=== PATIENT | male | born 1965 | race African-American/Black ===

== ENCOUNTER 2019-02-08 09:03 | Inpatient (IN) | payer OTHER ==
[2019-02-08 11:09] VITALS: BMI 24.3
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
[2019-02-08] MEDS ORDERED: BISMUTH SUBSALICYLATE 262 MG/15 ML BTL PO PRN (11:43)
[2019-02-08] MEDS ORDERED: IBUPROFEN 400 MG TABLET (FP) PO PRN (11:43)
[2019-02-08] MEDS ORDERED: METHOCARBAMOL 500 MG TABLET PO PRN (11:43)
[2019-02-08] MEDS ORDERED: MAGNESIUM CITRATE 300 ML BOTTLE PO PRN (11:43)
[2019-02-08] MEDS ORDERED: MAGNESIUM HYDROX 2400MG/30ML ORAL SUSPENSION 30 ML CUP PO PRN (11:43)
[2019-02-08] MEDS ORDERED: ACETAMINOPHEN 325 MG TABLET (FP) PO PRN ×2 (11:43)
[2019-02-08] MEDS ORDERED: MAG HYDROX/AL HYDROX/SIMETH 30 ML UNIT-DOSE CUP PO PRN (11:43)
[2019-02-08] MEDS ORDERED: chlordiazePOXIDE HCL 25 MG CAPSULE PO PRN (11:43)
[2019-02-08] MEDS ORDERED: hydrOXYzine HCL 25 MG TABLET (FP) PO PRN (11:43)
[2019-02-08] MEDS ORDERED: NICOTINE POLACRILEX 2 MG GUM BUC PRN (11:43)
[2019-02-08] MEDS ORDERED: MENTHOL/PHENOL 1 EACH UD MM PRN (11:43)
[2019-02-08] MEDS: NICOTINE 21 MG/24 HOURS TOPICAL PATCH TD SCH (13:58)
[2019-02-08] MEDS: BACITRACIN 15 GM TUBE TOPICAL OINTMENT TP SCH ×2 (13:59→22:32)
[2019-02-08 14:05] LABS: HEMATOCRIT 40.4 % (35.4-49); HEMOGLOBIN 13.2 GM/dL (11.7-16.9); MCH 28.3 pg (25.7-33.7); MCHC 32.8 g/dl (32.0-35.9); MEAN CELL VOLUME 86.3 fl (80-96); MEAN PLT VOLUME 9.1 fl (7.5-11.1); PLATELET COUNT 231 K/MM3 (134-434); RBC 4.69 M/mm3 (4.00-5.60); RDW 14.3 % (11.9-15.9); WHITE BLOOD COUNT 6.3 K/mm3 (4.0-10.0)
[2019-02-08 14:19] LABS: ALBUMIN 3.5 g/dl (3.4-5.0); BILIRUBIN,TOTAL 0.6 mg/dL (0.2-1); BLOOD UREA NITROGEN 11.6 mg/dL (7-18); CALCIUM 8.8 mg/dL (8.5-10.1); CREATININE 1.1 mg/dL (0.55-1.3); POTASSIUM 4.1 mmol/L (3.5-5.1); TOT PROT 6.9 g/dl (6.4-8.2)
[2019-02-08] MEDS: chlordiazePOXIDE HCL 25 MG CAPSULE PO SCH ×2 (17:30→22:31)
[2019-02-08] MEDS: MELATONIN 5 MG TABLETS PO PRN (22:32)
[2019-02-08] MEDS: THIAMINE HCL 100 MG TABLET (FP) PO SCH (22:32)
[2019-02-09] MEDS: chlordiazePOXIDE HCL 25 MG CAPSULE PO SCH ×4 (06:17→22:47)
[2019-02-09] MEDS: PRENATAL VITAMINS W/ FOLIC ACID TABLET (FP) PO SCH (10:39)
[2019-02-09] MEDS: NICOTINE 21 MG/24 HOURS TOPICAL PATCH TD SCH (10:39)
[2019-02-09] MEDS: BACITRACIN 15 GM TUBE TOPICAL OINTMENT TP SCH ×2 (10:39→22:48)
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
[2019-02-09 22:00] VITALS: TEMP 97
[2019-02-09] MEDS: THIAMINE HCL 100 MG TABLET (FP) PO SCH (22:47)
[2019-02-09] MEDS: MELATONIN 5 MG TABLETS PO PRN (22:48)
[2019-02-09 23:35] LABS: PH,URINE 7.5 (5.0-8.0); URINE APPEARANCE CLEAR; URINE BILIRUBIN NEGATIVE (NEGATIVE); URINE COLOR YELLOW; URINE GLUCOSE (UA) NEGATIVE (NEGATIVE); URINE KETONE NEGATIVE (NEGATIVE); URINE LEUK ESTERASE NEGATIVE (NEGATIVE); URINE NITRITE NEGATIVE (NEGATIVE); URINE PROTEIN NEGATIVE (NEGATIVE); URINE UROBILINOGEN 0.2 mg/dL (0.2-1.0)
[2019-02-10] MEDS: chlordiazePOXIDE HCL 25 MG CAPSULE PO SCH ×2 (06:13→10:22)
[2019-02-10 06:37] VITALS: BP 126/89; PULSE 66
[2019-02-10] MEDS: BACITRACIN 15 GM TUBE TOPICAL OINTMENT TP SCH (10:21)
[2019-02-10] MEDS: PRENATAL VITAMINS W/ FOLIC ACID TABLET (FP) PO SCH (10:21)
[2019-02-10] MEDS: NICOTINE 21 MG/24 HOURS TOPICAL PATCH TD SCH (10:21)
--- NOTE | 2019-02-10 10:58 | DS ---
[facility] Detox Discharge Summary Admission Date: 02/08/19 Discharge Date: 02/10/19 - History Present History: Alcohol Dependence Additional Comments: 53 years old male admitted on 02/08/19 for acute alcohol withdrawal sx management insists to leave the detox unit "It is time" counselor and commercial real estate underwriter discuss risks and dangerousness of alcohol withdrawal patient prefers to return to [place] to home that he was sober for 7 years and he prefers to go home today - Physical Exam Results Vital Signs: Vital Signs Temperature 97 F L 02/10/19 06:37 Pulse Rate 66 02/10/19 06:37 Respiratory Rate 18 02/10/19 06:37 Blood Pressure 126/89 02/10/19 06:37 O2 Sat by Pulse Oximetry (%) Pertinent Admission Physical Exam Findings: alcohol withdrawal sx Laboratory Last Values WBC 6.3 K/mm3 (4.0-10.0) 02/08/19 12:05 RBC 4.69 M/mm3 (4.00-5.60) 02/08/19 12:05 Hgb 13.2 GM/dL (11.7-16.9) 02/08/19 12:05 Hct 40.4 % (35.4-49) 02/08/19 12:05 MCV 86.3 fl (80-96) 02/08/19 12:05 MCH 28.3 pg (25.7-33.7) 02/08/19 12:05 MCHC 32.8 g/dl (32.0-35.9) 02/08/19 12:05 RDW 14.3 % (11.9-15.9) 02/08/19 12:05 Plt Count 231 K/MM3 (134-434) 02/08/19 12:05 MPV 9.1 fl (7.5-11.1) 02/08/19 12:05 Sodium 141 mmol/L (136-145) 02/08/19 12:05 Potassium 4.1 mmol/L (3.5-5.1) 02/08/19 12:05 Chloride 103 mmol/L (98-107) 02/08/19 12:05 Carbon Dioxide 32 mmol/L (21-32) 02/08/19 12:05 Anion Gap 6 MMOL/L (8-16) L 02/08/19 12:05 BUN 11.6 mg/dL (7-18) 02/08/19 12:05 Creatinine 1.1 mg/dL (0.55-1.3) 02/08/19 12:05 Est GFR (CKD-EPI)AfAm 87.74 02/08/19 12:05 Est GFR (CKD-EPI)NonAf 75.70 02/08/19 12:05 Random Glucose 69 mg/dL (74-106) L 02/08/19 12:05 Calcium 8.8 mg/dL (8.5-10.1) 02/08/19 12:05 Total Bilirubin 0.6 mg/dL (0.2-1) 02/08/19 12:05 AST 41 U/L (15-37) H 02/08/19 12:05 ALT 28 U/L (13-61) 02/08/19 12:05 Alkaline Phosphatase 58 U/L (45-117) 02/08/19 12:05 Total Protein 6.9 g/dl (6.4-8.2) 02/08/19 12:05 Albumin 3.5 g/dl (3.4-5.0) 02/08/19 12:05 Urine Color Yellow 02/09/19 18:30 Urine Appearance Clear 02/09/19 18:30 Urine pH 7.5 (5.0-8.0) 02/09/19 18:30 Ur Specific [place] 1.007 (1.010-1.035) L 02/09/19 18:30 Urine Protein Negative (NEGATIVE) 02/09/19 18:30 Urine Glucose (UA) Negative (NEGATIVE) 02/09/19 18:30 Urine Ketones Negative (NEGATIVE) 02/09/19 18:30 Urine Blood Negative (NEGATIVE) 02/09/19 18:30 Urine Nitrite Negative (NEGATIVE) 02/09/19 18:30 Urine Bilirubin Negative (NEGATIVE) 02/09/19 18:30 Urine Urobilinogen 0.2 mg/dL (0.2-1.0) 02/09/19 18:30 Ur Leukocyte Esterase Negative (NEGATIVE) 02/09/19 18:30 RPR Titer Nonreactive (NONREACTIVE) 02/08/19 12:05 lab noted alert oriented x 3 S1S2 clear lung no shortness of breathe encourage the patient return to [facility] abdomen soft non tender steady gait - Treatment Hospital Course: Detox Protocol Followed, Responded well Patient has Accepted a Rehab Referral to: [facility] - Medication Discharge Medications: Ambulatory Orders NK [No Known Home Medication] 08/18/14 - Diagnosis (1) Alcohol dependence with uncomplicated withdrawal Current Visit: Yes Status: Acute (2) Nicotine dependence Current Visit: Yes Status: Acute Qualifiers: Nicotine product type: cigarettes Substance use status: in withdrawal Qualified Code(s): F17.213 - Nicotine dependence, cigarettes, with withdrawal - AMA Did Patient Leave Against Medical Advice: Yes CIWA Score - CIWA Score Nausea/Vomitin-Mild Nausea/No Vomiting Muscle Tremors: 2 Anxiety: 2 Agitation: 2 Paroxysmal Sweats: 1-Minimal Palms Moist Orientation: 0-Oriented Tacttile Disturbances: 0-None Auditory Disturbances: 0-None Visual Disturbances: 0-None Headache: 0-None Present CIWA-Ar Total Score: 8
[2019-02-11] MEDS ORDERED: chlordiazePOXIDE HCL 10 MG CAPSULE PO PRN
[2019-02-11] MEDS ORDERED: chlordiazePOXIDE HCL 10 MG CAPSULE PO SCH (05:00)
[2019-02-12] MEDS ORDERED: chlordiazePOXIDE HCL 10 MG CAPSULE PO SCH (05:00)
[2019-02-13] MEDS ORDERED: chlordiazePOXIDE HCL 10 MG CAPSULE PO ONE (05:00)
== END 2019-02-10 10:36 | disposition left against medical advice (07) | DRG 770 ==
LOC: YASAS 09:03 → Y3N 12:06
PROVIDERS: ADMIT Surgery; ATTEND Surgery
PROC: HZ2ZZZZ Detoxification Services for Substance Abuse Treatment (ICD-10-PCS; principal; 2019-02-08)
DX: F10.230 Alcohol dependence with withdrawal, uncomplicated (principal); F14.20 Cocaine dependence, uncomplicated; F12.20 Cannabis dependence, uncomplicated; F17.213 Nicotine dependence, cigarettes, with withdrawal; S09.90XD Unspecified injury of head, subsequent encounter; S00.81XD Abrasion of other part of head, subsequent encounter; Y04.0XXD Assault by unarmed brawl or fight, subsequent encounter
CPT/HCPCS: 36415; 80053; 81003; 85027; 86480; 86593